=== PATIENT | male | born 1990 | race Caucasian/White ===

== ENCOUNTER 2018-01-24 07:48 | Emergency (ER) | payer OTHER ==
[~2018-01-24] VITALS: Ht 170.2 cm; Wt 74.8 kg
[2018-01-24] MEDS ORDERED: NORFLEX100 MG PO (09:15)
[2018-01-24] MEDS ORDERED: NAPROSYN500 MG PO (09:15)
[2018-01-24 09:41] VITALS: BP 138/86
== END 2018-01-24 09:23 | disposition home or self-care (01) ==
LOC: ER 07:48
DX: M54.5 Low back pain (principal); M62.830 Muscle spasm of back; F17.210 Nicotine dependence, cigarettes, uncomplicated